=== PATIENT | female | born 1930 | race Caucasian/White ===

== ENCOUNTER 2017-02-16 18:46 | Emergency (ER) | payer OTHER, MEDICAID ==
[~2017-02-16] VITALS: Ht 157.5 cm; Wt 45.5 kg
[2017-02-16 18:54] VITALS: Ht 157.5 cm; Wt 45.5 kg
[2017-02-16] MEDS ORDERED: AMLO2.5T78 PO (19:52)
[2017-02-16] MEDS ORDERED: TRAM-40 PO (19:53)
[2017-02-16] MEDS ORDERED: DORZ10DR BOTH EYES (19:54)
[2017-02-16] MEDS ORDERED: LATA2.5D2 BOTH EYES (19:54)
[2017-02-16] MEDS ORDERED: VIGA LEFT EYE (19:55)
[2017-02-16] MEDS ORDERED: ALEN70TA30 PO (20:12)
[2017-02-16] MEDS ORDERED: HYDR-3670 PO (20:13)
[2017-02-16] MEDS ORDERED: OMEP20CA16 PO (20:14)
[2017-02-16] MEDS ORDERED: LOSA50TA6 PO (20:14)
[2017-02-16] MEDS ORDERED: GABA100C14 PO (20:14)
[2017-02-16] MEDS ORDERED: CLON-379 PO (20:15)
[2017-02-16] MEDS ORDERED: SERT-165 PO (20:15)
--- NOTE | 2017-02-16 21:36 | RADRPT ---
PROCEDURE: CT Head without. CLINICAL INDICATION: Posterior head trauma. TECHNIQUE: The study was performed utilizing a multi-slice, multidetector CT scanner. Direct spira l 1 mm axial sections were obtained through the head without the use of intravenous contrast materia l. 1 or more of the following dose reduction techniques were utilized: Automated exposure control, adjustment of the mA and/or kV according to patient's size, iterative reconstruction technique. Co luli and sagittal reformations were obtained. The images were reviewed on a PACS workstation. RADIATION DOSE: CTDIvol: 44.3 mGyDLP: 720.2 mGy-cm COMPARISON: No prior studies are available for comparison. FINDINGS: There is no intracranial hemorrhage, extra-axial fluid collection, mass lesion, midline shift or hyd rocephalus. There is mild prominence of the cerebral sulci, lateral and third ventricles. There is mild periventricular and subcortical white matter hypodensity. There is mild arteriosclerotic calc ification of the parasellar internal carotid arteries. The cheng-white matter differentiation is pre served. The basal cisterns are patent. The midline structures are intact. There is bilateral apha kwesi. There is pneumatization of the bilateral petrous apices without evidence of inflammatory walker es, normal variant. The orbits, calvarium and extracranial soft tissues are normal in appearance. Th e visualized paranasal sinuses, mastoid air cells and middle ear cavities are normally aerated. IMPRESSION: 1. No acute intracranial abnormality. No intracranial hemorrhage, extra-axial fluid collection, ma ss lesion or hydrocephalous. 2. Mild peripheral and central cerebral volume loss. 3. Mild periventricular and subcortical white matter hypodensity, likely related to chronic microan giopathic changes. RPTAT: HGAS .Artem Gallegos MD, Date Time Electronically viewed and signed by .Artem Gallegos MD, on 02/16/2017 21:36 .S/
[2017-02-16 22:21] VITALS: BP 54/85; PULSE 71; RESP 16
--- NOTE | 2017-02-16 23:51 | ERD ---
ER Documentation Chief Complaint Date/Time DATE: 02/16/17 TIME: 23:47 Chief Complaint s/p fall in the bathroom hit her head no k.o HPI 86-year-old female presenting with her family after a ground-level fall. She states that she was draping her towel over the shower sonal and lost her balance and fell onto her back hitting the back of her head. She denies any loss of consciousness or pain anywhere else in her body. She has chronic back pain that is not worse today. She denies any significant headaches, nausea, vomiting , vision disturbance, difficulty walking after that event. She has no associated neck or back pain that is new. She denies feeling dizzy or having any chest pain or shortness of breath prior to the fall. ROS All systems reviewed and are negative except as per history of present illness. Medications Home Meds Reported Medications Clonidine Hcl* (Clonidine Hcl*) 0.1 Mg Tab, 0.1 MG PO QHS, TAB 02/16/17 Sertraline Hcl* (Sertraline Hcl*) 100 Mg Tablet, 100 MG PO DAILY, #30 TAB 02/16/17 Omeprazole* (Omeprazole*) 20 Mg Capsule.dr, 20 MG PO BID, #60 CAP 02/16/17 Losartan Potassium* (Losartan Potassium*) 50 Mg Tablet, 50 MG PO DAILY, TAB 02/16/17 Gabapentin* (Gabapentin*) 100 Mg Capsule, 200 MG PO QHS, #60 CAP 02/16/17 Hydralazine Hcl* (Hydralazine Hcl*) 10 Mg Tablet, 10 MG PO BID, #60 TAB 02/16/17 Alendronate Sodium* (Fosamax*) 70 Mg Tablet, 70 MG PO Q7D, #4 TAB 02/16/17 Moxifloxacin Hcl* (Vigamox*) 0.5% - 3 Ml Opht, 1 DROP LEFT EYE BID, #1 EA 02/16/17 Latanoprost (Latanoprost) 2.5 Ml Drops, 1 DROP BOTH EYES QHS, #1 BOTTLE 02/16/17 Dorzolamide Hcl* (Dorzolamide Hcl*) 10 Ml Drops, 1 DROP BOTH EYES BID, #1 EA 02/16/17 Tramadol Hcl* (Ultram*) 50 Mg Tablet, 50 MG PO BID Y for PAIN, TAB 02/16/17 Amlodipine Besylate* (Amlodipine Besylate*) 2.5 Mg Tablet, 2.5 MG PO BID, #30 TAB 02/16/17 Allergies Allergies: Coded Allergies: Penicillins (Unverified Allergy, Unknown, 02/16/17) codeine (Unverified Allergy, Unknown, 02/16/17) PMhx/Soc History of Surgery: Yes (cholecystectomy, left eye surgery) Hx Cardiac Disorders: Yes (htn, dm) Hx Miscellaneous Medical Probl: Yes (chronic back pain, depression) Hx Alcohol Use: No Hx Substance Use: No Hx Tobacco Use: No Smoking Status: Never smoker FmHx Family History: No diabetes Physical Exam Vitals Vital Signs Date Time Temp Pulse Resp B/P Pulse Ox O2 Delivery O2 Flow Rate FiO2 02/16/17 22:21 71 16 54/85 98 Room Air 02/16/17 21:13 73 16 172/59 98 Room Air 02/16/17 19:46 76 16 175/57 98 Room Air 02/16/17 18:54 98.5 78 20 181/111 95 Physical Exam Const: Well-appearing, pleasant, smiling, no distress Head: Left parieto-occipital scalp with small hematoma, no depression. No barraza sign. No bruising over the mastoid process Eyes: Normal Conjunctiva, left cornea opacified, baseline per patient. Right pupil reactive to light. EOMI ENT: Normal External Ears, Nose and Mouth. No hemotympanum. Neck: Full range of motion. No meningismus. No C-spine tenderness to palpation Resp: Clear to auscultation bilaterally Cardio: Regular rate and rhythm, no murmurs Abd: Soft, non tender, non distended. Normal bowel sounds Skin: No petechiae or rashes Back: No midline or flank tenderness Ext: No cyanosis, or edema Neur: Awake and alert, strength and sensations intact in all 4 extremities, cranial nerves intact Psych: Normal Mood and Affect Procedures/MDM Patient is presenting after what sounds like a mechanical fall. She is currently hemodynamically stable other than hypertension, which is likely chronic for the patient. I do not suspect hypertensive emergency. I have a low suspicion for cardiac or pulmonary etiology for her fall. It sounds like it was purely mechanical. Her neurological exam is normal. CT head was done given the patient is on aspirin and did not show any acute intracranial hemorrhage or other acute abnormalities. During the time the patient was in the ER, she was able to walk without difficulty and had no worsening complaints. Family seems very reliable. They will take the patient home today. Return precautions were discussed. They will watch her closely. They will follow-up with primary care doctor in 2 days. Fall prevention was also discussed. Departure Diagnosis: Primary Impression: Acute head injury without loss of consciousness Encounter type: initial encounter Qualified Code: S09.90XA - Acute head injury without loss of consciousness, initial encounter Additional Impression: Hematoma of scalp Encounter type: initial encounter Qualified Code: S00.03XA - Hematoma of scalp, initial encounter Condition: Stable Patient Instructions: HEAD INJURY, No Wake-Up (Adult), Hematoma Additional Instructions: Follow-up with your primary care doctor on Saturday as scheduled. Return to the ER for any worsening symptoms. FORREST IVERSON MD Feb 16, 2017 23:51
== END 2017-02-16 22:22 | disposition home or self-care (01) ==
LOC: E/R 18:46
DX: S00.03XA Contusion of scalp, initial encounter (principal); I10 Essential (primary) hypertension; E11.9 Type 2 diabetes mellitus without complications; W18.09XA Striking against other object with subsequent fall, initial encounter; Y92.002 Bathroom of unspecified non-institutional (private) residence as the place of occurrence of the external cause
CPT/HCPCS: 70450

== ENCOUNTER 2017-02-17 15:36 | Observation (INO) | payer OTHER, MEDICAID ==
[~2017-02-17] VITALS: Ht 165.1 cm; Wt 46.4 kg
[~2017-02-17 15:36] MED LIST: ALEN70TA30 PO; AMLO2.5T78 PO; CLON-379 PO; DORZ10DR BOTH EYES; GABA100C14 PO; HYDR-3670 PO; LATA2.5D2 BOTH EYES; LOSA50TA6 PO; OMEP20CA16 PO; SERT-165 PO; TRAM-40 PO; VIGA LEFT EYE
[2017-02-17] MEDS ORDERED: SOD CHLORIDE 0.9% 1,000 ML IV STA (20:04)
[2017-02-17] MEDS ORDERED: CEFTRIAXONE 1 GM/50 ML (PMX) 50 ML IVPB ONE (20:30)
[2017-02-17 20:34] VITALS: TEMP 98.3
[2017-02-17 20:58] LABS: ADD SCAN DIFF NO
[2017-02-17 21:02] LABS: BASOPHILS % 0.8 % (0.0-2.0); EOSINOPHILS # 0.1 10^3/ul (0.0-0.5); EOSINOPHILS % 1.5 % (0.0-7.0); HEMATOCRIT 36.1 % (37.0-47.0); HEMOGLOBIN 11.7 g/dl (12.0-16.0); LYMPHOCYTES # 1.9 10^3/ul (0.8-2.9); LYMPHOCYTES % 35.1 % (15.0-51.0); MEAN CORPUSCULAR HEMOGLOBIN 31.2 pg (29.0-33.0); MEAN CORPUSCULAR HGB CONC 32.4 g/dl (32.0-37.0); MEAN CORPUSCULAR VOLUME 96.3 fl (82.0-101.0); MEAN PLATELET VOLUME 10.3 fl (7.4-10.4); MONOCYTE # 0.5 10^3/ul (0.3-0.9); MONOCYTES % 9.8 % (0.0-11.0); NEUTROPHIL # 2.8 10^3/ul (1.6-7.5); NEUTROPHILS % 52.4 % (39.0-77.0); PLATELET COUNT 198 10^3/UL (140-415); RED BLOOD COUNT 3.75 10^6/ul (4.20-5.40); RED CELL DISTRIBUTION WIDTH 13.4 % (11.5-14.5); WHITE BLOOD COUNT 5.3 10^3/ul (4.8-10.8)
--- NOTE | 2017-02-17 21:11 | RADRPT ---
PROCEDURE: XR Chest. CLINICAL INDICATION: Abdominal pain. TECHNIQUE: Single frontal view of the chest. COMPARISON: None. FINDINGS: Cardiomegaly and atherosclerotic calcifications in the thoracic aorta. Likely changes of centrolobu lar emphysema. The lungs otherwise clear. No signs of pleural fluid or pneumothorax are seen. The o sseous structures and soft tissues are unremarkable. IMPRESSION: No evidence for active cardiopulmonary disease. RPTAT: [facility] Physician Sotero Date Time Electronically viewed and signed by Cas Franks Physician on 02/17/2017 21:11 RS/
[2017-02-17 21:13] LABS: ADD UMIC NO; UR BILIRUBIN (Dip) NEGATIVE (NEGATIVE); UR BLOOD (Dip) NEGATIVE (NEGATIVE); UR CLARITY CLEAR (CLEAR); UR COLOR LT. YELLOW (YELLOW); UR GLUCOSE (Dip) NEGATIVE (NEGATIVE); UR KETONES (Dip) NEGATIVE (NEGATIVE); UR LEUKOCYTE ESTERASE (Dip) NEGATIVE (NEGATIVE); UR NITRITE (Dip) NEGATIVE (NEGATIVE); UR TOTAL PROTEIN (Dip) NEGATIVE (NEGATIVE); UR UROBILINOGEN (Dip) 0.2 E.U./dL (0.1-1.0)
[2017-02-17 21:17] LABS: CHLORIDE 100 mmol/L (97-110)
[2017-02-17 21:18] LABS: POTASSIUM 3.8 mmol/L (3.5-5.1); SODIUM 138 mmol/L (135-144)
[2017-02-17 21:20] LABS: ANION GAP 13 (8-16); CARBON DIOXIDE 29 mmol/L (21-31); CREATININE 0.75 mg/dl (0.44-1.00)
--- NOTE | 2017-02-17 21:20 | RADRPT ---
PROCEDURE: CT head, without contrast. CLINICAL INDICATION: Hemorrhage. TECHNIQUE: Noncontrast CT examination of the head, with axial, sagittal and coronal reformatted im ages. Automated dose exposure control was employed. CTDI: 45.01 and DLP: 630.20. COMPARISON: 02/16/2017. FINDINGS: Chronic changes of atrophy and small vessel disease white matter. No acute hemorrhage. Subarachnoid spaces are substantially preserved and symmetric. Ventricles ar e unremarkable. No mass effect. Manriquez-white matter distinction is preserved without evident decreased attenuation t o suggest acute or recent infarct. Sinuses and osseous structures are unremarkable. IMPRESSION: Chronic changes of atrophy and small vessel disease white matter, and otherwise, no acute process in the head. RPTAT: [facility] Physician Sotero Date Time Electronically viewed and signed by Physician Sotero on 02/17/2017 21:19 RS/
[2017-02-17 21:21] LABS: ALANINE AMINOTRANSFERASE 20 IU/L (13-69); ALBUMIN/GLOBULIN RATIO 1.29; ALKALINE PHOSPHATASE 76 IU/L (42-121); ASPARTATE AMINO TRANSFERASE 26 IU/L (15-46); BILIRUBIN,INDIRECT 0.3 mg/dl (0-1.1); BILIRUBIN,TOTAL 0.3 mg/dl (0.2-1.3); BLOOD UREA NITROGEN 23 mg/dl (7-20); CALCIUM 9.6 mg/dl (8.4-10.2); GLUCOSE 160 mg/dl (70-220); TOTAL PROTEIN 7.1 g/dl (6.1-8.1)
--- NOTE | 2017-02-17 21:22 | ERD ---
ER Documentation Chief Complaint Date/Time DATE: 02/17/17 TIME: 21:16 Chief Complaint CONFUSION STARTING THIS AFTERNOON, FALL YESTERDAY HPI 86-year-old woman brought in by family members for taking a very long nap this afternoon, which is not normal for her. They state she has been feeling confused after waking up from her nap as well. She suffered a mechanical fall yesterday and injured her occipital scalp although CT scan of the brain performed yesterday was unremarkable. She has had no vomiting or diarrhea, no fevers or chills, no complaints of chest pain or shortness of breath. Patient does have a history of Alzheimer's dementia. ROS All systems reviewed and are negative except as per history of present illness. Medications Home Meds Reported Medications Clonidine Hcl* (Clonidine Hcl*) 0.1 Mg Tab, 0.1 MG PO QHS, TAB 02/16/17 Sertraline Hcl* (Sertraline Hcl*) 100 Mg Tablet, 100 MG PO DAILY, #30 TAB 02/16/17 Omeprazole* (Omeprazole*) 20 Mg Capsule.dr, 20 MG PO BID, #60 CAP 02/16/17 Losartan Potassium* (Losartan Potassium*) 50 Mg Tablet, 50 MG PO DAILY, TAB 02/16/17 Gabapentin* (Gabapentin*) 100 Mg Capsule, 200 MG PO QHS, #60 CAP 02/16/17 Hydralazine Hcl* (Hydralazine Hcl*) 10 Mg Tablet, 10 MG PO BID, #60 TAB 02/16/17 Alendronate Sodium* (Fosamax*) 70 Mg Tablet, 70 MG PO Q7D, #4 TAB 02/16/17 Moxifloxacin Hcl* (Vigamox*) 0.5% - 3 Ml Opht, 1 DROP LEFT EYE BID, #1 EA 02/16/17 Latanoprost (Latanoprost) 2.5 Ml Drops, 1 DROP BOTH EYES QHS, #1 BOTTLE 02/16/17 Dorzolamide Hcl* (Dorzolamide Hcl*) 10 Ml Drops, 1 DROP BOTH EYES BID, #1 EA 02/16/17 Tramadol Hcl* (Ultram*) 50 Mg Tablet, 50 MG PO BID Y for PAIN, TAB 02/16/17 Amlodipine Besylate* (Amlodipine Besylate*) 2.5 Mg Tablet, 2.5 MG PO BID, #30 TAB 02/16/17 Allergies Allergies: Coded Allergies: Penicillins (Unverified Allergy, Unknown, 02/16/17) codeine (Unverified Allergy, Unknown, 02/16/17) PMhx/Soc Hypertension, Alzheimer's dementia, diabetes mellitus, gastritis, chronic pain syndrome History of Surgery: Yes (cholecystectomy, left eye surgery) Hx Cardiac Disorders: Yes (htn, dm) Hx Miscellaneous Medical Probl: Yes (chronic back pain, depression, osteoporosis, gastritis.) Hx Alcohol Use: No Hx Substance Use: No Hx Tobacco Use: No Smoking Status: Never smoker FmHx Family History: No diabetes Physical Exam Vitals Vital Signs Date Time Temp Pulse Resp B/P Pulse Ox O2 Delivery O2 Flow Rate FiO2 02/17/17 20:34 98.3 71 18 171/60 99 Room Air 02/17/17 16:00 99.1 80 20 196/86 96 Physical Exam GENERAL: Well-developed, well-nourished, appears dehydrated, afebrile HEENT: Dry mucous membranes, pink conjunctiva, no cervical spine tenderness or step-off deformities, no goiter, no jaundice or icterus, extraocular movements intact without pain. No submandibular induration, and no pharyngeal erythema NEURO: Alert and oriented 1, appears confused, cranial nerves II through XII intact bilaterally, pupils equal round reactive to light, no focal deficits or facial asymmetry, sensation intact distally Strength 5/5 in upper and lower extremities bilaterally CARDIAC: Regular rate and rhythm, no murmurs rubs or gallops LUNGS: Clear bilaterally no wheezing crackles or stridor ABDOMEN: Soft nontender, no guarding, no rigidity, no rebound, no psoas sign no obturator sign. Normoactive bowel sounds SKIN: Warm and dry to touch, no abrasions, contusions, or hematomas, no lacerations, no ecchymosis, no target lesions, and without ulcers EXTREMITIES: No clubbing cyanosis or edema, calves are bilaterally symmetrical, no Homans sign, no popliteal cord sign. Distal pulses equal and bilateral PSYCH: Normal affect without agitation or irritability Result Diagram: 02/17/17202402/17/172024 Results 24 hrs Laboratory Tests Test 02/17/17 20:25 White Blood Count 5.310^3/ul Red Blood Count 3.7510^6/ul Hemoglobin 11.7g/dl Hematocrit 36.1% Mean Corpuscular Volume 96.3fl Mean Corpuscular Hemoglobin 31.2pg Mean Corpuscular Hemoglobin Concent 32.4g/dl Red Cell Distribution Width 13.4% Platelet Count 08209^3/UL Mean Platelet Volume 10.3fl Neutrophils % 52.4% Lymphocytes % 35.1% Monocytes % 9.8% Eosinophils % 1.5% Basophils % 0.8% Nucleated Red Blood Cells % 0.0/100WBC Neutrophils # 2.810^3/ul Lymphocytes # 1.910^3/ul Monocytes # 0.510^3/ul Eosinophils # 0.110^3/ul Basophils # 0.010^3/ul Nucleated Red Blood Cells # 0.010^3/ul Urine Color LT. YELLOW Urine Clarity CLEAR Urine pH 6.0 Urine Specific [place] 1.015 Urine Ketones NEGATIVE Urine Nitrite NEGATIVE Urine Bilirubin NEGATIVE Urine Urobilinogen 0.2 E.U./dL Urine Leukocyte Esterase NEGATIVE Urine Hemoglobin NEGATIVE Urine Glucose NEGATIVE% Urine Total Protein NEGATIVE Sodium Level 138mmol/L Potassium Level 3.8mmol/L Chloride Level 100mmol/L Carbon Dioxide Level 29mmol/L Anion Gap 13 Blood Urea Nitrogen 23mg/dl Creatinine 0.75mg/dl Glucose Level 160mg/dl Calcium Level 9.6mg/dl Total Bilirubin 0.3mg/dl Direct Bilirubin 0.00mg/dl Indirect Bilirubin 0.3mg/dl Aspartate Amino Transf (AST/SGOT) 26IU/L Alanine Aminotransferase (ALT/SGPT) 20IU/L Alkaline Phosphatase 76IU/L Troponin I < 0.012ng/ml Total Protein 7.1g/dl Albumin 4.0g/dl Globulin 3.10g/dl Albumin/Globulin Ratio 1.29 Lipase 148U/L Current Medications Medications (Trade) Dose Ordered Sig/Yoselyn Route PRN Reason Start Time Stop Time Status Last Admin Dose Admin Sodium Chloride 1,000 ml @ 1,000 mls/hr Q1H STAT IV 02/17/17 20:04 02/17/17 21:03 DC 02/17/17 20:24 Ceftriaxone Sodium (Rocephin) 50 ml @ 100 mls/hr ONCE ONCE IVPB 02/17/17 20:30 02/17/17 20:59 DC 02/17/17 20:24 Amlodipine Besylate (Norvasc) 2.5 mg BID PO 02/17/17 22:00 UNV Clonidine (Catapres) 0.1 mg QHS PO 02/18/17 21:00 UNV Dorzolamide HCl (Trusopt) 1 drop BID BOTH EYES 02/17/17 22:00 UNV Gabapentin (Neurontin) 100 mg QHS PO 02/18/17 21:00 UNV Hydralazine HCl (Apresoline) 10 mg BID PO 02/17/17 22:00 UNV Latanoprost (Xalatan) 1 drop QHS BOTH EYES 02/18/17 21:00 UNV Losartan Potassium (Cozaar) 50 mg DAILY PO 02/18/17 09:00 UNV Moxifloxacin HCl (Vigamox) 1 drop BID LEFT EYE 02/17/17 22:00 UNV Sertraline HCl (Zoloft) 100 mg DAILY PO 02/18/17 09:00 UNV Tramadol HCl (Ultram) 50 mg BID PRN PO PAIN 02/17/17 22:00 UNV Hydralazine HCl 10 mg 10 mg Q8H PRN IV ELEVATED BLOOD PRESSURE 02/17/17 22:00 UNV Sodium Chloride (NS) 1,000 ml @ 75 mls/hr [id number] IV 02/17/17 21:55 UNV IV Flush (NS 3 ml) 3 ml PER PROTOCOL IV 02/17/17 22:00 UNV Ondansetron HCl (Zofran Inj) 4 mg Q6H PRN IV NAUSEA AND/OR VOMITING 02/17/17 22:00 UNV Acetaminophen (Tylenol Tab) 650 mg Q6H PRN PO PAIN LEVEL 1-3 OR FEVER 02/17/17 22:00 UNV Docusate Sodium (Colace) 100 mg Q12H PRN PO CONSTIPATION 02/17/17 22:00 UNV Magnesium Hydroxide (Milk Of Mag) 30 ml DAILY PRN PO CONSTIPATION 02/17/17 22:00 UNV Bisacodyl (Dulcolax Supp) 10 mg DAILY PRN [place] CONSTIPATION 02/17/17 22:00 UNV Pantoprazole (Protonix Tab) 40 mg BID PO 02/17/17 22:00 UNV Procedures/MDM IV line was established patient was placed on cardiac monitor technician rhythm strip revealed a normal sinus rhythm at about 70 bpm with upright P and T waves. Patient was afebrile. Urine cultures have been ordered results are pending I will follow-up. I administered 1 L normal saline intravenously for dehydration, ibuprofen 600 mg p.o. for low-grade fever. Given her recent confusion and suspicion for urinary tract infection I did initially administer ceftriaxone [address] scan of the brain was negative for acute bleed mass or shift. One view chest x-ray performed, read by me revealed flattened hemidiaphragms, and hyperventilation, no acute infiltrates, no pneumothorax. EKG performed, read by me: 74 bpm, normal sinus rhythm, normal axis, no acute ST segment changes, narrow QRS complex, with good R-wave progression in precordial leads. CBC and electrolytes were unremarkable, liver function tests were normal, troponin was negative, urine analysis was negative for infection. Patient will be admitted to [facility] for acute encephalopathy. Departure Diagnosis: Primary Impression: Altered level of consciousness Additional Impressions: Dehydration Concussion Encounter type: initial encounter Loss of consciousness presence/duration: without LOC Qualified Code: S06.0X0A - Concussion, without LOC, initial encounter Scalp contusion Alzheimer's dementia Alzheimer's disease onset: unspecified onset Dementia behavioral disturbance : without behavioral disturbance Qualified Code: G30.9 - Alzheimer's dementia without behavioral disturbance, unspecified timing of dementia onset Condition: PATTI Jeff MD Feb 17, 2017 21:22
[2017-02-17 21:43] LABS: TROPONIN-I < 0.012 ng/ml (0.00-0.12)
[2017-02-17] MEDS ORDERED: traMADol 50 MG TAB PO PRN (22:00)
[2017-02-17] MEDS ORDERED: NACL 0.9% 3 ML SYG IV SCH (22:00)
[2017-02-17] MEDS ORDERED: hydrALAzine 20 MG INJ IV PRN (22:00)
[2017-02-17] MEDS ORDERED: MAGNESIUM HYDROXIDE 30ML CUP PO PRN (22:00)
[2017-02-17] MEDS ORDERED: BISACODYL 10 MG SUPP PR PRN (22:00)
[2017-02-17] MEDS ORDERED: DOCUSATE SODIUM 100 MG CAP PO PRN (22:00)
[2017-02-17] MEDS ORDERED: ONDANSETRON 4 MG INJ IV PRN (22:00)
[2017-02-17] MEDS ORDERED: ACETAMINOPHEN 325 MG TAB PO PRN (22:00)
[2017-02-17] MEDS: MOXIFLOXACIN 0.5% 3 ML OPH LEFT EYE SCH (22:38)
[2017-02-17] MEDS: DORZOLAMIDE 2% 10 ML OPH BOTH EYES SCH (22:38)
[2017-02-17] MEDS: SOD CHLORIDE 0.9% 1,000 ML IV SCH (22:38)
[2017-02-17] MEDS: AMLODIPINE 2.5 MG TAB PO SCH (22:39)
[2017-02-17] MEDS: PANTOPRAZOLE (EC) 40 MG TAB PO SCH (22:39)
[2017-02-18 00:40] VITALS: BP 197/75; RESP 16
[2017-02-18 00:41] VITALS: Ht 165.1 cm; Wt 46.4 kg
[2017-02-18 01:40] VITALS: BP 169/74; PULSE 65; RESP 21
[2017-02-18 04:21] VITALS: BP 144/76; RESP 18
[2017-02-18] MEDS: PANTOPRAZOLE (EC) 40 MG TAB PO SCH (05:33)
[2017-02-18 05:59] LABS: ADD SCAN DIFF NO
[2017-02-18 06:11] LABS: BASOPHILS % 0.7 % (0.0-2.0); EOSINOPHILS # 0.1 10^3/ul (0.0-0.5); EOSINOPHILS % 1.8 % (0.0-7.0); HEMATOCRIT 36.7 % (37.0-47.0); HEMOGLOBIN 11.9 g/dl (12.0-16.0); LYMPHOCYTES # 1.7 10^3/ul (0.8-2.9); LYMPHOCYTES % 30.8 % (15.0-51.0); MEAN CORPUSCULAR HEMOGLOBIN 31.2 pg (29.0-33.0); MEAN CORPUSCULAR HGB CONC 32.4 g/dl (32.0-37.0); MEAN CORPUSCULAR VOLUME 96.1 fl (82.0-101.0); MEAN PLATELET VOLUME 10.3 fl (7.4-10.4); MONOCYTE # 0.6 10^3/ul (0.3-0.9); MONOCYTES % 11.3 % (0.0-11.0); NEUTROPHIL # 3.1 10^3/ul (1.6-7.5); NEUTROPHILS % 55.2 % (39.0-77.0); PLATELET COUNT 204 10^3/UL (140-415); RED BLOOD COUNT 3.82 10^6/ul (4.20-5.40); RED CELL DISTRIBUTION WIDTH 13.7 % (11.5-14.5); WHITE BLOOD COUNT 5.6 10^3/ul (4.8-10.8)
[2017-02-18 06:25] LABS: CALCIUM 8.8 mg/dl (8.4-10.2); CREATININE 0.62 mg/dl (0.44-1.00); MAGNESIUM 1.7 mg/dl (1.7-2.5); PHOSPHORUS 2.8 mg/dl (2.5-4.9); POTASSIUM 3.4 mmol/L (3.5-5.1)
[2017-02-18 06:33] LABS: CK-MB 1.53 ng/ml (0.0-2.4)
[2017-02-18 06:36] LABS: TROPONIN-I 0.014 ng/ml (0.00-0.12)
[2017-02-18 06:55] LABS: THYROID STIMULATING HORMONE 2.57 MIU/L (0.465-4.680)
[2017-02-18 07:26] VITALS: BP 146/65; RESP 19
[2017-02-18] MEDS: AMLODIPINE 2.5 MG TAB PO SCH (08:48)
[2017-02-18] MEDS: DORZOLAMIDE 2% 10 ML OPH BOTH EYES SCH (08:50)
[2017-02-18] MEDS: MOXIFLOXACIN 0.5% 3 ML OPH LEFT EYE SCH (08:50)
[2017-02-18] MEDS ORDERED: POTASSIUM CHLORIDE (SR) 20 MEQ TAB PO STA (08:54)
[2017-02-18] MEDS ORDERED: SERTRALINE 100 MG TAB PO SCH (09:00)
[2017-02-18] MEDS ORDERED: MAGNESIUM SULFATE 2 GM/50 ML 50 ML IVPB ONE (09:00)
[2017-02-18] MEDS ORDERED: LOSARTAN 50 MG TAB PO SCH (09:00)
[2017-02-18] MEDS: SOD CHLORIDE 0.9% 1,000 ML IV SCH (11:39)
--- NOTE | 2017-02-18 12:15 | PDOCDIS ---
Discharge Instructions CONDITION Patient Condition: Stable HOME CARE INSTRUCTIONS: Special Diet: 2GM NA ACTIVITY: Activity Restrictions: Slowly Increase Activity FOLLOW UP/APPOINTMENTS Appointments Follow up with PCP within 1 week Home health PT RENETTA SANTIAGO Feb 18, 2017 12:15
[2017-02-18] MEDS ORDERED: GABA100C14 PO (12:17)
[2017-02-18] MEDS ORDERED: FAMO20TA18 PO (12:17)
--- NOTE | 2017-02-18 13:10 | HP ---
DATE OF ADMISSION: 02/17/2017 CHIEF COMPLAINT ON ADMISSION: Altered level of consciousness. HISTORY OF PRESENT ILLNESS: This is an 86-year-old female with history of Alzheimer's dementia, hyp ertension, neuropathy, and also status post fall 24 hours prior to presentation who was brought into the emergency department by the family because she was noted to be lethargic and somnolent in the a fternoon. The patient had an episode of fall, mechanical, accidental, in the showers apparently 24 hours prior. She was seen in the emergency department at [facility] on 02/16/2017 . Her CAT scan was stable and within normal; she was therefore discharged home at that point in her stable mental status at baseline. According to the family, the next day she was noted to be lethar gic and sleeping a lot. Therefore, they brought her to the emergency department. By the time she g ot to the emergency department, her mental status seems to be at baseline. Her repeat CAT scan is s table, no acute findings. However, given her recent fall, there was some concern of concussion and need for observation. The patient was admitted to a medical/surgical bed. This morning she is doin g very well. She is back to her baseline. She does have Alzheimer's dementia. She seems to be anx ious and scared to be in this environment, but knows where she is. I did ambulate her myself. She is fairly steady. She uses a walker at home occasionally she reports; Therefore, I have advised fo r her to start using it again. Her vital signs are stable and [facility]. Renal function is within normal. There are no signs of acute infection. Her urine culture is n egative. Her UA is negative, no need for antibiotics. She has been rehydrated overnight. Actually she was not dehydrated that much. ALLERGIES: 1. PENICILLIN. 2. CODEINE. PAST MEDICAL HISTORY: 1. Alzheimer's dementia. 2. Hypertension. 3. Status post recent fall with possible concussion. PAST SURGICAL HISTORY: Unknown. REVIEW OF SYSTEMS: Very limited but within normal and as per HPI. OUTPATIENT MEDICATIONS: 1. Amlodipine 2.5 mg p.o. b.i.d. 2. Clonidine 0.1 mg p.o. at bedtime. 3. Hydralazine 10 mg p.o. b.i.d. 4. Losartan 50 mg p.o. daily. 5. Gabapentin 200 mg p.o. at bedtime. 6. Zoloft 100 mg p.o. daily. 7. Ultram 50 mg p.o. b.i.d. p.r.n. pain. 8. Dorzolamide 1 drop to both eyes b.i.d. 8. Latanoprost 2.5 mL 1 drop to both eyes at bedtime. 9. Vigamox eyedrops to left eye b.i.d. 10. Omeprazole 20 mg p.o. b.i.d. 11. Fosamax 70 mg p.o. q. weekly. PHYSICAL EXAMINATION: VITAL SIGNS: Temperature is 98.1, heart rate 65, blood pressure 146/45. She is satting 96 to 100% on room air. GENERAL: She is alert and oriented x3 at least at this time, she is a little anxious, but not in ac leeroy distress. HEENT: Pupils are equally round and reactive to light. Extraocular muscles are intact. Anicteric sclerae. NECK: No JVD, no thyromegaly noted. HEART: Regular rate and rhythm. No murmur, rubs, or gallops. LUNGS: Clear to auscultation bilaterally. The patient is able to ambulate with no shortness of scarlett ath. ABDOMEN: Soft, nontender, nondistended. Bowel sounds are present. EXTREMITIES: No edema, clubbing, or cyanosis. NEUROLOGIC: The patient's gait is a little tentative, but stable. She is able to ambulate with mys elf. Her strength is 5/5 throughout. Cranial nerves are intact. Mental status-barry, she is at [facility]. She is very anxious, currently is fearful and wants to go home. LABORATORY DATA: White blood cell count 5.6, hemoglobin 11.9, hematocrit 36.7, platelet count of 20 4. Chemistry with a sodium of 137, potassium 3.4, chloride 105, bicarbonate 25, BUN 17, creatinine 0.62. Magnesium is 1.7. Cardiac enzymes are negative x2. TSH, free T4 within normal. LFTs within normal. Urinalysis is completely negative. Urine culture is negative. RADIOLOGICAL DATA: 1. CAT scan of the brain on February 16 and February 17 shows chronic changes of atrophy, small vesse l disease, white matter, otherwise no acute process. 2. Chest x-ray is within normal, also no active cardiopulmonary disease. EKG shows also sinus rhythm with some PACs, but otherwise normal. ASSESSMENT AND PLAN: This is an 86-year-old female with: 1. Status post fall with mild concussion which is resolved. At this point, she is back to her base line. She is to be discharged home with home health PT as needed. She already has a 4-wheeled walk er. 2. Alzheimer's dementia. Continue home medications. 3. Hypertension. Continue home medications. 4. Neuropathy. Continue home medications. 5. Prophylaxis. The patient is ambulatory currently. SCDs were placed overnight for DVT prophylax is, and GI prophylaxis, she is on proton pump inhibitors already. DISPOSITION: The patient will be discharged home today with home health PT and back to the care of her family. Dictated By: RENETTA PADILLA/MELA Conf#: [id number] DID#: [id number]
[2017-02-18] MEDS ORDERED: LATANOPROST 0.005% 2.5 ML OPH BOTH EYES SCH (21:00)
[2017-02-18] MEDS ORDERED: GABAPENTIN 100 MG CAP PO SCH (21:00)
== END 2017-02-18 13:40 | disposition home or self-care (01) ==
LOC: E/R 15:36 → INTOOBSV 21:58 → MS2 21:58 → UNDOADMOB 21:58 → UNDODISOB 02-18 13:40
PROVIDERS: ADMIT Internal Medicine; ATTEND Internal Medicine
DX: S06.0X9A Concussion with loss of consciousness of unspecified duration, initial encounter (principal); S00.03XA Contusion of scalp, initial encounter; G30.9 Alzheimer's disease, unspecified; F02.80 Dementia in other diseases classified elsewhere, unspecified severity, without behavioral disturbance, psychotic disturbance, mood disturbance, and anxiety; I10 Essential (primary) hypertension; G62.9 Polyneuropathy, unspecified; E86.0 Dehydration; Z88.0 Allergy status to penicillin; Z88.5 Allergy status to narcotic agent; Z90.49 Acquired absence of other specified parts of digestive tract; W19.XXXA Unspecified fall, initial encounter; Y93.9 Activity, unspecified; Y99.9 Unspecified external cause status; Y92.9 Unspecified place or not applicable
CPT/HCPCS: 36415; 70450; 71010; 80048; 80053; 81003; 82550; 82553; 82962; 83690; 83735; 84100; 84439; 84443; 84484; 85025; 87086; 93005; 96366; 96374; 96375; 99285; G0378; J0360; J0696; J3475; J7030